=== PATIENT | female | born 1985 | race Caucasian/White ===

== ENCOUNTER 2020-06-15 11:44 | Emergency (ER) | payer SELFPAY ==
[~2020-06-15] VITALS: Ht 165.1 cm; Wt 80.0 kg
[2020-06-15 11:54] VITALS: BP 134/88
[2020-06-15] MEDS ORDERED: ACETAMINOPHEN 325MG TABLET PO ONE (14:00)
[2020-06-15] MEDS ORDERED: KETOROLAC 60MG/2ML VIAL IM ONE (15:30)
== END 2020-06-15 16:14 | disposition left against medical advice (07) ==
LOC: ER 11:44
DX: M79.672 Pain in left foot (principal); M79.671 Pain in right foot; F99 Mental disorder, not otherwise specified
CPT/HCPCS: 99283; J1885